=== PATIENT | female | born 1985 | race Caucasian/White ===

== ENCOUNTER 2016-11-21 07:56 | Inpatient (IN) | payer OTHER ==
[2016-11-21] VITALS (17 sets, daily range): BP systolic 101–126; BP diastolic 55–84
[~2016-11-21] VITALS: Ht 167.6 cm; Wt 83.6 kg
[~2016-11-21 07:56] MED LIST: Motrin PO; Percocet 5/325,Endoc PO
[2016-11-21 10:00] LABS: EOSINOPHIL (%) 0.1 % (0-5); HEMATOCRIT 35.1 % (36.0-46.0); IMMATURE GRANULOCYTE (%) 0.4 % (0.0-0.7); INSTRUMENT ABS NEUTROPHIL CT 8.7 K/uL; LYMPHOCYTE COUNT 1.2 K/uL (1.0-2.8); MCH 28.1 PG (29.0-34.0); MCHC 32.8 G/DL (30.0-36.0); MCV 85.8 FL (83-99); MONOCYTE (%) 4.9 % (3-12); MONOCYTE COUNT 0.5 K/uL (0-0.8); NEUTROPHIL (%) 82.6 % (45-76); NEUTROPHIL COUNT 8.7 K/uL (1.8-6.4); PLATELET COUNT 288 K/uL (156-360); RED BLOOD COUNT 4.09 M/uL (3.80-5.20); WHITE BLOOD COUNT 10.5 K/uL (4.1-10.2)
[2016-11-21] MEDS ORDERED: IBUPROFEN800 MG PO (15:40)
[2016-11-22 07:56] VITALS: BP 119/77
[2016-11-22 15:36] VITALS: BP 117/79
== END 2016-11-22 19:05 | disposition home or self-care (01) | DRG 775 ==
LOC: LDRP-OP 07:56 → 2WEST 07:57 → LDRP-OP 08:24 → 2WEST 15:25 → LDRP-OP 12-26 20:19
PROVIDERS: Nurse Practitioner
PROC: 00HU33Z Insertion of Infusion Device into Spinal Canal, Percutaneous Approach (ICD-10-PCS; principal; 2016-11-21)
PROC: 3E0R3CZ (ICD-10-PCS; principal; 2016-11-21)
PROC: 10907ZC Drainage of Amniotic Fluid, Therapeutic from Products of Conception, Via Natural or Artificial Opening (ICD-10-PCS; principal; 2016-11-21)
PROC: 10E0XZZ Delivery of Products of Conception, External Approach (ICD-10-PCS; principal; 2016-11-21)
DX: O80 Encounter for full-term uncomplicated delivery (principal); Z3A.39 39 weeks gestation of pregnancy; Z37.0 Single live birth
CPT/HCPCS: 85025; J3010; J7120